=== PATIENT | female | born 1970 | race Caucasian/White ===

== ENCOUNTER 2019-01-06 22:59 | Emergency (ER) | payer OTHER ==
[2019-01-06] MEDS ORDERED: Acetaminophen/Codeine 30-300mg Tablet ONE (23:21)
== END 2019-01-06 23:45 | disposition home or self-care (01) ==
LOC: BURERS 22:59
DX: S76.311A Strain of muscle, fascia and tendon of the posterior muscle group at thigh level, right thigh, initial encounter (principal); E03.9 Hypothyroidism, unspecified; Z79.899 Other long term (current) drug therapy; X50.1XXA Overexertion from prolonged static or awkward postures, initial encounter
CPT/HCPCS: 29505